=== PATIENT | male | born 1945 | race Caucasian/White ===

== ENCOUNTER → 2018-06-21 | Day surgery (SDC) | payer OTHER ==
[~2018-06-21] MED LIST: ASPIR 8181 MG PO; CRESTOR40 MG PO; LEXAPRO20 MG PO; METOPROLOL SUCC25 M1 PO; PLAVIX 75 MG TA75 M1 PO; PROTONIX40 M1 PO
--- NOTE | ~2018-06-21 | PROC ---
[address] [address] PROCEDURE REPORT Name: KUSUM BERNSTEIN Room: [facility]#: [id number] Admission: 06/21/18 Attend Phys: Lucia Amaro MD Discharge: Date of : 45 Report #: [id number] THIS REPORT FOR: //name// For GI report, Please see the Provation report in Perceptive 7. By: [id number] Records Staff [facility] /SRIDEVI
[2018-06-21 09:50] LABS: CREATININE 1.2 mg/dL (0.6-1.3); HEMATOCRIT 41.2 % (42.0-52.0); HEMOGLOBIN 13.7 gm/dL (14.0-18.0); MCH 31.5 pg (26.0-34.0); MCHC 33.2 g/dL (28.0-37.0); MCV 94.7 fL (80.0-100.0); MPV 7.7 fl. (7.2-11.1); POTASSIUM 3.8 mmol/L (3.5-5.1); RBC 4.36 mil/uL (4.50-6.00); RDW-CV 13.3 % (10.5-14.5); WBC 6.2 thou/uL (4.0-11.0)
--- NOTE | 2018-06-21 12:32 | EKG ---
[place] [address] ELECTROCARDIOGRAM REPORT Name: KUSUM BERNSTEIN Room: [facility]#: [id number] Admission: 06/21/18 Attend Phys: Lucia Amaro MD Discharge: Date of : 45 Report #: [id number] THIS REPORT FOR: //name// [facility] Test Date: 2018-06-21 Test Time: 09:44:31 Pat Name: KUSUM BOONEETT Department: Room: Gender: M Inside Wirer: : 1945 Requested By: Lucia Amaro Order Number: [id number] Filomena MD: Duong Yuan Measurements Intervals Fletcher Rate: 48 P: -12 OK: 140 QRS: -1 QRSD: 115 T: 42 QT: 455 QTc: 407 Interpretive Statements Sinus bradycardia Nonspecific intraventricular conduction delay Probable inferior infarct, old No previous ECG available for comparison Electronically Signed On 06-21-2018 12:31:48 EMB[employer] SOFTWARE DESIGN ENGINEER by Duong Yuan [email or web address] <ELECTRONICALLY SIGNED> By: Duong Yuan MD, [facility] 06/21/18 1231 0944 0944 Duong Yuan MD, FACC /EPI
--- NOTE | 2018-06-24 16:07 | PATH ---
[address] [address] PATHOLOGY RPT PROCEDURE Name: JAYME BERNSTEIN Room: [facility]#: [id number] Admission: 06/21/18 Date of : 45 Discharge: Report #: [id number] Path Case #: [id number] [facility] Accession Number: [id number] . 01 Material submitted: . 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 01 Clinical history: . 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 02 Diagnosis: Biopsy distal esophagus: - Benign esophageal, gastric cardiac and Mckeon's types mucosa with mild chronic inflammation typical of reflux, negative for dysplasia. (BEKAH:patricia; 06/24/2018) MBR/06/24/2018 . 02 Electronically signed: . Jeffry Day MD, Pathologist NPI- [id number] . 01 Gross description: . The specimen is received in formalin, labeled "Jayme Bernstein, biopsy distal esophagus, history of Mckeon's: Rule out dysplasia", are two hairston-white soft tissues measuring 0.5 x 0.2 x 0.1 cm in aggregate, entirely submitted in A1. (SWS; 06/21/2018) SHS/SHS . 02 Pathologist provided ICD-10: K20.9 . 02 CPT . 041947 Specimen Comment: A courtesy copy of this report has been sent to Specimen Comment: [phone], . Specimen Comment: Report sent to / DR HERRERA Performed at: [address] [facility], [place], [place] [id number] MD Jeronimo Fischer MD Phone: [phone] Performed at: 02 [facility] [address], [place], [place] [id number] MD Jeffry Day MD Phone: [phone]
== END | disposition home or self-care (01) ==
LOC: M.SUR 09:08
PROVIDERS: Internal Medicine Gastroenterology
DX: K29.50 Unspecified chronic gastritis without bleeding (principal); K22.70 Barrett's esophagus without dysplasia; K21.9 Gastro-esophageal reflux disease without esophagitis; K44.9 Diaphragmatic hernia without obstruction or gangrene; I10 Essential (primary) hypertension; E78.5 Hyperlipidemia, unspecified; I25.10 Atherosclerotic heart disease of native coronary artery without angina pectoris; I25.2 Old myocardial infarction; D68.9 Coagulation defect, unspecified; F32.9 Major depressive disorder, single episode, unspecified; Z95.5 Presence of coronary angioplasty implant and graft; Z79.01 Long term (current) use of anticoagulants; Z98.890 Other specified postprocedural states; Z79.899 Other long term (current) drug therapy; Z88.0 Allergy status to penicillin; Z79.82 Long term (current) use of aspirin